=== PATIENT | female | born 1990 | race Caucasian/White ===

== ENCOUNTER 2017-05-04 01:56 | Emergency (ER) | payer BC ==
[~2017-05-04] VITALS: Ht 162.6 cm; Wt 109.8 kg
[~2017-05-04 01:56] MED LIST: BIRTH CONTROL PILLS; CEFTIN500 MG PO; NO HOME MEDICATIONS; NORCO 325 MG-51 TAB PO
[2017-05-04 02:03] VITALS: TEMP 97.5
[2017-05-04] MEDS ORDERED: ZOLOFT 25MG25 MG PO (02:07)
[2017-05-04 03:05] LABS: BASO # 0.1 (0.0-0.2); BASO % 0.4 % (0.0-2.0); EOS % 0.1 % (0-4.0); GRAN # 8.7 (1.4-6.5); GRAN % 63.6 % (42.2-75.2); LYMPH # 4.1 (1.2-3.4); LYMPH % 29.8 % (20.0-51.0); MEAN CELL VOLUME 91 fl (80.0-100.0); MEAN CORPUSCULAR HGB CONC 33 g/dl (33.0-37.0); MEAN PLATELET VOLUME 9.6 fl (7.4-10.4); MONO # 0.8 (0.1-0.6); MONO % 5.8 % (1.7-9.3); PLATELET COUNT 570 K/mm3 (130-400); RED BLOOD COUNT 3.61 M/mm3 (4.10-5.30); REDCELL DISTRIBUTION WIDTH-CV 14.3 % (11.5-14.5); WHITE BLOOD COUNT 13.7 K/mm3 (4.8-10.8)
[2017-05-04 03:07] LABS: HEMOGLOBIN 10.9 g/dl (12.5-16.0); MEAN CORPUSCULAR HEMOGLOBIN 30 pg (27.0-31.0)
[2017-05-04 03:08] LABS: PH 6 (5-8); SQUAMOUS EPITHELIAL 0-2 /hpf; URINE APPEARANCE Clear; URINE BACTERIA Rare /hpf; URINE BILIRUBIN Negative (NEGATIVE); URINE BLOOD 1+ (NEGATIVE); URINE COLOR Yellow; URINE GLUCOSE Negative (NEGATIVE); URINE KETONE Negative (NEGATIVE); URINE UROBILINOGEN Negative (NEGATIVE)
[2017-05-04 03:13] LABS: URINE WBC 20-50 /hpf
[2017-05-04 03:14] LABS: ADJUSTED CALCIUM 9.4 mg/dL (8.4-10.2); ALBUMIN 3.9 gm/dL (3.5-5.0); BILIRUBIN,TOTAL 1.1 mg/dL (0.0-1.0); CALCIUM 9.3 mg/dL (8.4-10.2); CREATININE, serum 0.6 mg/dL (0.52-1.25); POTASSIUM 4.1 mmol/L (3.4-5.0); TOTAL PROTEIN 7.2 gm/dL (6.4-8.2)
[2017-05-04] MEDS ORDERED: AMOXICILLIN 8751 TAB PO (05:11)
[2017-05-04 05:28] VITALS: BP 134/79; PULSE 64
== END 2017-05-04 05:28 | disposition home or self-care (01) ==
LOC: COL.ER 01:56
PROVIDERS: Emergency Medicine
DX: N39.0 Urinary tract infection, site not specified (principal); Z32.02 Encounter for pregnancy test, result negative; Z87.59 Personal history of other complications of pregnancy, childbirth and the puerperium
CPT/HCPCS: J0295; J7030

== ENCOUNTER → 2020-05-26 | Outpatient (CLI) | payer BC ==
[~2020-05-26] MED LIST changes: +AMOXICILLIN 8751 TAB PO; +ZOLOFT 25MG25 MG PO
== END ==
LOC: ZCOL.LAB 16:28
DX: Z20.828 Contact with and (suspected) exposure to other viral communicable diseases (principal)